=== PATIENT | male | born 1980 ===

== ENCOUNTER 2017-07-15 07:05 | Day surgery (SDC) | payer OTHER ==
[~2017-07-15] VITALS: Ht 152.4 cm; Wt 88.9 kg
== END 2017-07-15 17:00 | disposition home or self-care (01) ==
LOC: ER 07:05 → O/R 07:33 → CIR.AMB 13:00
DX: S66.121A Laceration of flexor muscle, fascia and tendon of left index finger at wrist and hand level, initial encounter (principal)

== ENCOUNTER → 2019-12-09 | Outpatient (CLI) | payer OTHER | END | disposition home or self-care (01) | LOC: OFIC 805 09:00 | PROVIDERS: ATTEND Otolaryngology | DX: H93.8X1 Other specified disorders of right ear (principal); H60.8X1 Other otitis externa, right ear ==

== ENCOUNTER → 2019-12-13 | Outpatient (CLI) | payer OTHER | END | disposition home or self-care (01) | LOC: OFIC 805 09:45 | PROVIDERS: ATTEND Otolaryngology | DX: H93.8X1 Other specified disorders of right ear (principal); H60.8X1 Other otitis externa, right ear ==